=== PATIENT | female | born 1955 | race African-American/Black ===

== ENCOUNTER 2019-10-09 17:58 | Inpatient (IN) | payer OTHER ==
--- OUTSIDE RECORDS SUMMARY | 2019-10-09 18:01 | XMS REPORT | Summary of Care ---
:1955 Author Organization [facility] Address [address] [place] [address] Care Team Providers Name Role Phone Doctor Unassigned, [place] Primary Care Provider Unavailable Reason for Visit Reason Comments Cough 1 week Headache 1 week Fever today- 102.5 Encounter Details Date Type Department Care Team Description 10/07/2019 Urgent Care [facility] Unknown, Attending Mass of lower lobe of left lung (Primary Dx); [facility] Care Julita Colbert, [facility] [address] [facility] [address] [place] [address] Fever, unspecified fever cause; [address] Chest congestion; [place] [address] Allergies Active Allergy Reactions Severity Noted Date Comments Penicillins Hives, Shortness of Breath 10/07/2019 documented as of this encounter (statuses as of 10/07/2019) Medications Medication Sig Dispensed Refills Start Date End Date Status amLODIPine 10 mg tablet Take 10 mg by 0 09/30/2019 Active mouth daily. anastrozole 1 mg tablet Take 1 mg by 0 09/30/2019 Active mouth daily carvediloL 25 mg tablet TAKE 1 TABLET 0 10/01/2019 Active BY MOUTH TWICE DAILY WITH FOOD celecoxib 200 mg capsule TAKE 1 0 08/28/2019 Active CAPSULE BY MOUTH TWICE DAILY NEEDED FARXIGA 5 mg tablet Take 1 tablet 0 09/30/2019 Active by mouth daily. DEXILANT 60 mg capsule Take 1 0 09/30/2019 Active capsule by mouth daily. doxazosin 4 mg tablet Take 4 mg by 0 09/30/2019 Active mouth 2 (two) times daily. gabapentin 300 mg capsule Take 300 mg 0 08/28/2019 Active by mouth 2 (two) times daily. hydroCHLOROthiazide 25 mg 0 10/03/2019 Active tablet telmisartan 80 mg tablet Take 80 mg by 0 09/30/2019 Active mouth daily. SITagliptin-metformin Take by 0 Active (JANUMET XR) 50-1,000 mg mouth. per tablet glipiZIDE XL 10 mg 24 hr Take 10 mg by 0 Active tablet mouth. pravastatin 40 mg tablet Take 40 mg by 0 Active mouth at bedtime. doxycycline hyclate 100 mg Take 1 tablet 14 tablet 0 10/07/20192019 Active tabletIndications: Chest by mouth 2 congestion, Productive (two) times cough, Mass of lower lobe daily for 7 of left lung days. Hospital, Clinic, or Other Ordered Dose Route Frequency Start Date End Date Status Facility Administered Medication acetaminophen (TYLENOL) 650 mg Oral ONCE 10/07/2019 10/07/2019 Ended tablet 650 mg documented as of this encounter (statuses as of 10/07/2019) Active Problems No known active problemsdocumented as of this encounter (statuses as of 2019) Social History Tobacco Use Types Packs/Day Years Used Date Never Smoker Smokeless Tobacco: Never Used Sex Assigned at Date Recorded Not on file Job Start Date Occupation Industry Not on file Not on file Not on file Travel History Travel Start Travel End No recent travel history available. documented as of this encounter Last Filed Vital Signs Vital Sign Reading Time Taken Comments Blood Pressure 134/77 10/07/2019 3:24 PM CDT Pulse 73 10/07/2019 3:24 PM CDT Temperature 39.1 C (102.4 F) 10/07/2019 3:24 PM CDT Respiratory Rate 18 10/07/2019 3:24 PM CDT Oxygen Saturation 97% 10/07/2019 3:24 PM CDT Inhaled Oxygen Concentration - - Weight 104.3 kg (230 lb) 10/07/2019 3:24 PM CDT Height 165.1 cm (5' 5") 10/07/2019 3:24 PM CDT Body Mass Index 38.27 10/07/2019 3:24 PM CDT documented in this encounter Progress Notes Julita Colbert FNP - 10/07/2019 2:00 PM CDT SUBJECTIVE CC: Cough (1 week); Headache (1 week); and Fever (today- 102.5) PCP : [place] Doctor Unassigned HPI: Mariella House is a 64 year old female who comes today with complaints of fever onset today,cough and headache for one week. She reports recently went to [facility] in [place] this past Saturday, the park, and museum over [place]. She states she started a week ago with runny nose, itchy eyes, and cough. She has been taking tessalon perles, cold and flu medicine and Mucinex with norelief. She states this morning she took her temperature and it was 102.5 at home. She has not had any Tylenol or ibuprofen. She does report a decreased appetite. Denies and nausea/vomiting or diarrhea. Denies any travel out of the country and coming into contact with anyone who has or has been positive for COVID19. Patient PCP: Natalya Coffman Denies chest pain, SOB, difficulty breathing, nausea/vomiting, diarrhea, dizziness, palpitations, blurry/double vision. ASSOCIATED SYMPTOMS/REVIEW OF SYMPTOMS: Fever: Tmax 102.5 measured at home. Ears, nose, mouth and throat: - ear pain, - nasal drainage, - sore throat Gastrointestinal: - vomiting, - nausea, - diarrhea, - abdominal pain, - constipation. Cardiovascular: - chest pain, - palpitations, - syncope Respiratory: - SOB, -difficulty breathing Neurological: - dizziness, -weakness, -blurry/double vision. Endocrine: - heat/cold intolerance, - fatigue, - sex drive Psychiatric: - depression, -anxiety, - mood changes Skin: - rash Allergy/Immunology: Negative I/O: Solid intake : decreased Liquid intake: normal Urinary output: normal Sick Contacts: contacts with similar symptoms - no Activity Level: normal Other Symptoms/Concerns: none PAST HISTORY Past Medical History: Diagnosis Date Breast cancer Diabetes HTN (hypertension) Neuropathy Immunizations: UTD No family history on file. Social History Socioeconomic History Marital status: Spouse name: Not on file Number of children: Not on file Years of education: Not on file Highest education level: Not on file Occupational History Not on file Social Needs Financial resource strain: Not on file Food insecurity: Worry: Not on file Inability: Not on file Transportation needs: Medical: Not on file Non-medical: Not on file Tobacco Use Smoking status: Never Smoker Smokeless tobacco: Never Used Substance and Sexual Activity Alcohol use: Not on file Drug use: Not on file Sexual activity: Not on file Lifestyle Physical activity: Days per week: Not on file Minutes per session: Not on file Stress: Not on file Relationships Social connections: Talks on phone: Not on file Gets together: Not on file Attends mandaeism service: Not on file Active member of club or organization: Not on file Attends meetings of clubs or organizations: Not on file Relationship status: Not on file Intimate partner violence: Fear of current or ex partner: Not on file Emotionally abused: Not on file Physically abused: Not on file Forced sexual activity: Not on file Other Topics Concern Not on file Social History Narrative Not on file Health Maintenance Due Topic Date Due HEPATITIS C (HCV) SCREEN 1955 DTaP,Tdap,and Td Vaccines (1 - Tdap) 1964 Breast Cancer Screening (MAMMOGRAM) 1993 COLONOSCOPY 2003 Zoster Recombinant Vaccine (SHINGRIX) (1 of 2) 2003 PNEUMOCOCCAL VACCINES 65+ (1 of 2 - PCV13) 2018 Medicare Wellness Visit 2018 Osteoporosis Screening 2018 INFLUENZA VACCINE (1) 03/22/2019 Current Meds: Current Outpatient Medications on File Prior to Visit Medication Sig Dispense Refill amLODIPine 10 mg tablet Take 10 mg by mouth daily. anastrozole 1 mg tablet Take 1 mg by mouth daily carvediloL 25 mg tablet TAKE 1 TABLET BY MOUTH TWICE DAILY WITH FOOD celecoxib 200 mg capsule TAKE 1 CAPSULE BY MOUTH TWICE DAILY NEEDED DEXILANT 60 mg capsule Take 1 capsule by mouth daily. doxazosin 4 mg tablet Take 4 mg by mouth 2 (two) times daily. FARXIGA 5 mg tablet Take 1 tablet by mouth daily. gabapentin 300 mg capsule Take 300 mg by mouth 2 (two) times daily. glipiZIDE XL 10 mg 24 hr tablet Take 10 mg by mouth. hydroCHLOROthiazide 25 mg tablet pravastatin 40 mg tablet Take 40 mg by mouth at bedtime. SITagliptin-metformin (JANUMET XR) 50-1,000 mg per tablet Take by mouth. telmisartan 80 mg tablet Take 80 mg by mouth daily. No current facility-administered medications on file prior to visit. ALLERGIES: Allergies Allergen Reactions Pcn [Penicillins] Hives and Shortness of Breath PHYSICAL EXAM BP 134/77 | Pulse 73 | Temp 39.1 C (102.4 F) (Oral) | Resp 18 | Ht 5' 5 " (1.651 m) | Wt 230lb (104.3 kg) | SpO2 97% | BMI 38.27 kg/m General: Alert, active, in no acute distress. + wet cough, ill appearing Head: Normocephalic. Eyes: Pupils equal, round, reactive to light, EOMI, bilateral conjunctivae clear , no discharge. Ears: External auditory canals are clear. TM's reg, landmarks noted. Nose: clear nasal discharge. Mouth: No lesions noted. Gums normal. Tongue symmetric. Throat: Moist mucous membranes, normal tonsils without erythema, exudates or petechiae. Neck: No lymphadenopathy. No thyromegaly. Lungs: Coarse breath, good air entry bilaterally. Heart: Regular rate and rhythm, no murmur auscultated. Abdomen: Normal bowel sounds, soft, non-tender, non-distended, no hepatosplenomegaly or masses. No CVA tenderness. Skin: Skin color normal for ethnicity, texture and turgor are normal; no bruising, rashes or lesionsnoted. Capillary refill 2 sec. Interventions in clinic: Mariella was seen today for cough, headache and fever. Diagnoses and all orders for this visit: Mass of lower lobe of left lung - doxycycline hyclate 100 mg tablet; Take 1 tablet by mouth 2 (two) times daily for 7 days. Fever, unspecified fever cause - POCT FLU A AND B (MOLECULAR) - POCT GRP A STREP (MOLECULAR) - CORONAVIRUS COVID-19 TESTING; Future - XR CHEST 2 VW; Future Chest congestion - CORONAVIRUS COVID-19 TESTING; Future - XR CHEST 2 VW; Future - doxycycline hyclate 100 mg tablet; Take 1 tablet by mouth 2 (two) times daily for 7 days. Productive cough - CORONAVIRUS COVID-19 TESTING; Future - XR CHEST 2 VW; Future - doxycycline hyclate 100 mg tablet; Take 1 tablet by mouth 2 (two) times daily for 7 days. Other orders - acetaminophen (TYLENOL) tablet 650 mg POCT strep and flu: negative. COVID screening pending. Chest xray reviewed with patient: 4.2cm left lower lobe lung mass; concerning for malignancy. Recommend chest CT. ASSESSMENT ICD-10-CM ICD-9-CM 1. Mass of lower lobe of left lung R91.8 786.6 2. Fever, unspecified fever cause R50.9 780.60 3. Chest congestion R09.89 786.9 4. Productive cough R05 786.2 PLAN: Current Outpatient Medications Medication Sig amLODIPine 10 mg tablet Take 10 mg by mouth daily. anastrozole 1 mg tablet Take 1 mg by mouth daily carvediloL 25 mg tablet TAKE 1 TABLET BY MOUTH TWICE DAILY WITH FOOD celecoxib 200 mg capsule TAKE 1 CAPSULE BY MOUTH TWICE DAILY NEEDED DEXILANT 60 mg capsule Take 1 capsule by mouth daily. doxazosin 4 mg tablet Take 4 mg by mouth 2 (two) times daily. doxycycline hyclate 100 mg tablet Take 1 tablet by mouth 2 (two) times daily for 7 days. FARXIGA 5 mg tablet Take 1 tablet by mouth daily. gabapentin 300 mg capsule Take 300 mg by mouth 2 (two) times daily. glipiZIDE XL 10 mg 24 hr tablet Take 10 mg by mouth. hydroCHLOROthiazide 25 mg tablet pravastatin 40 mg tablet Take 40 mg by mouth at bedtime. SITagliptin-metformin (JANUMET XR) 50-1,000 mg per tablet Take by mouth. telmisartan 80 mg tablet Take 80 mg by mouth daily. Recommend patient follow up with PCP for chest CT to be done. Patient given ER precautions for SOB, difficulty breathing, coughing up of blood, chest pain. Patient verbalized understanding. Plenty of rest and increase liquids. Antitussives as directed. Recommend Corcidin HBP. Symptomatic therapy as needed. Extra fluids encouraged. Limiting milk and dairy products until symptoms improve Practice good handwashing Discussed signs and symptoms of dehydration and instructed to call office if symptoms worsen Follow up with PCP PRN. Plan of care, desired health behaviors, goals and medications discussed with patient/parent and educational resources and self-management tools provided. Patient/family/guardian voices understanding. Barriers to care: none Ability to manage care: good AVS reviewed and given to patient at conclusion of visit. documented in this encounter Plan of Treatment Name Type Priority Associated Diagnoses Date/Time XR CHEST 2 VW IMAGING JAMES Fever, unspecified fever cause 10/07/2019 4:47 PM CDT Chest congestion Productive cough Name Type Priority Associated Diagnoses Order Schedule CORONAVIRUS COVID-19 LAB Routine Fever, unspecified fever Expected: 2019, TESTING cause Expires: 10/06/2020 Chest congestion Productive cough Health Maintenance Due Date Last Done Comments HEPATITIS C (HCV) SCREEN 1955 DTaP,Tdap,and Td Vaccines (1 - Tdap) 1964 Breast Cancer Screening (MAMMOGRAM) 1993 COLONOSCOPY 2003 Zoster Recombinant Vaccine (SHINGRIX) (1 of 2) 2003 Medicare Wellness Visit 2018 Osteoporosis Screening 2018 PNEUMOCOCCAL VACCINES 65+ (1 of 2 - PCV13) 2018 INFLUENZA VACCINE (#1) 2019 documented as of this encounter Procedures Procedure Name Priority Date/Time Associated Diagnosis Comments POCT FLU A AND B Routine 10/07/2019 Fever, unspecified Results for this (MOLECULAR) fever cause procedure are in the results section. POCT GRP A STREP Routine 10/07/2019 Fever, unspecified Results for this (MOLECULAR) fever cause procedure are in the results section. documented in this encounter Results POCT GRP A STREP (MOLECULAR) (10/07/2019) POCT GP A STREP negative Negative - Negative Specimen Swab - THROAT POCT FLU A AND B (MOLECULAR) (10/07/2019) POCT INFLUENZA A negative Negative - Negative POCT INFLUENZA B negative Negative - Negative Specimen Swab documented in this encounter Visit Diagnoses Diagnosis Mass of lower lobe of left lung - Primary Fever, unspecified fever cause Chest congestion Other symptoms involving respiratory system and chest Productive cough Cough documented in this encounter Administered Medications Medication Order MAR Action Action Date Dose Rate Site acetaminophen (TYLENOL) tablet Given 10/07/2019 4:46 PM CDT 650 mg 650 mg 650 mg, Oral, ONCE, 1 dose, Sat10/07/19 at 1730, Routine documented in this encounter Insurance Payer Benefit Plan / Subscriber ID Effective Dates Phone Address Type Group [employer] [id number] 2019-Presen Medicare Adv [place] HMO documented as of this encounter
--- OUTSIDE RECORDS SUMMARY | 2019-10-09 18:01 | XMS REPORT ---
:1955 Author [facility] Address [address] [place] [address] Dr. Leyva [address] [place] [address] Care Team Providers Name Role Phone Unavailable Unavailable Unavailable Problems This patient has no known problems. Allergies, Adverse Reactions, Alerts This patient has no known allergies or adverse reactions. Medications This patient has no known medications.
--- OUTSIDE RECORDS SUMMARY | 2019-10-09 18:02 | XMS REPORT | Summary of Care ---
:1955 Author Organization [facility] Address [address] [place] [address] Care Team Providers Name Role Phone Doctor Unassigned, [place] Primary Care Provider Unavailable Reason for Visit Reason Comments Cough 1 week Headache 1 week Fever today- 102.5 Encounter Details Date Type Department Care Team Description 10/07/2019 Urgent Care [facility] Unknown, Attending Mass of lower lobe of left lung (Primary Dx); [facility] Urgent Care Julita Colbert, [facility] [address] [facility] [address] [place] [address] Fever, unspecified fever cause; [address] Chest congestion; [place] [address] Allergies Active Allergy Reactions Severity [...] week); and Fever (today- 102.5) PCP : [place] Doctor Unassigned HPI: Mariella House is a 64 year old female who comes today with complaints of fever onset today,cough and headache for one week. She reports recently went to [facility] in [place] this past Saturday, the park, and museum [...] file Gets together: Not on file Attends judaism service: Not on file Active member of [...] of Treatment Name Type Priority Associated Diagnoses Order Schedule [...] results section. documented in this encounter Results XR CHEST 2 VW (10/07/2019 4:47 PM CDT) Specimen Impressions Performed At PACS/VR/DOSE Left lower lobe mass like opacity concerning for malignancy. Chest CT with contrast is recommended for further evaluation. Preliminary Report Dictated by Resident: Clovis Adkins I, Meagan Lewis MD., have reviewed this study and agree with the above report. Narrative Performed At XR CHEST 2 VW PACS/VR/DOSE HISTORY: fever, cough COMPARISON: None FINDINGS: 4.2 cm round opacity is present in the left perihilar region, projecting posteriorly on the lateral radiograph, likely within the left lower lobe. The costophrenic angles are clear. The heart is normal in size. No pneumothorax is found. Procedure Note [facility], Radiant Results Inft User - 10/07/2019 6:39 PM CDT XR CHEST 2 VW HISTORY: fever, cough COMPARISON: None FINDINGS: 4.2 cm round opacity is present in the left perihilar region, projecting posteriorly on the lateral radiograph, likely within the left lower lobe. The costophrenic angles are clear. The heart is normal in size. No pneumothorax is found. IMPRESSION Left lower lobe mass like opacity concerning for malignancy. Chest CT with contrast is recommended for further evaluation. Preliminary Report Dictated by Resident: Meagan Ortega MD., have reviewed this study and agree with the above report. Performing Organization Address City/State/Zipcode Phone Number PACS/VR/DOSE POCT GRP A STREP (MOLECULAR) (10/07/2019) POCT [...] ID Effective Dates Phone Address Type Group [employer] [id number] 2019-Presen Medicare Adv [place] HMO documented as of this encounter
--- OUTSIDE RECORDS SUMMARY | 2019-10-09 18:02 | XMS REPORT | Summary of Care ---
:1955 Author Organization [facility] Address [address] [place] [address] Care Team Providers Name Role Phone Doctor Unassigned, [place] Primary Care Provider Unavailable Encounter Details Date Type Department Care Team Description 10/09/2019 Nurse Triage [facility] Dion Fajardo RN [address] [place] [address] Allergies Active Allergy Reactions Severity Noted Date Comments Penicillins Hives, Shortness of Breath 10/07/2019 documented as of this encounter (statuses as of 10/09/2019) Medications Medication Sig Dispensed Refills Start Date [...] daily for 7 of left lung days. documented as of this encounter (statuses as of 10/09/2019) Active Problems No known active problemsdocumented as [...] of this encounter Last Filed Vital Signs Not on filedocumented in this encounter Plan of Treatment Health Maintenance Due Date Last Done Comments HEPATITIS C (HCV) SCREEN 1955 DTaP,Tdap,and Td Vaccines (1 - Tdap) 1964 Breast Cancer Screening (MAMMOGRAM) 1993 COLONOSCOPY 2003 Zoster Recombinant Vaccine (SHINGRIX) (1 of 2) 2003 Medicare Wellness Visit 2018 Osteoporosis Screening 2018 PNEUMOCOCCAL VACCINES 65+ (1 of 2 - PCV13) 2018 INFLUENZA VACCINE (#1) 2019 documented as of this encounter Results Not on filedocumented in this encounter Insurance Payer Benefit Plan / Subscriber ID Effective Dates Phone Address Type Group [employer] [id number] 2019-Presen Medicare Adv [place] HMO documented as of this encounter
--- OUTSIDE RECORDS SUMMARY | 2019-10-09 18:02 | XMS REPORT | Summary of Care ---
:1955 Author Organization [facility] Address [address] [place] [address] Care Team Providers Name Role Phone Doctor Unassigned, [place] Primary Care Provider Unavailable Encounter Details Date Type Department Care Team Description 10/09/2019 Nurse Triage [facility] Dion Fajardo RN [address] [place] [address] Allergies Active Allergy Reactions Severity Noted Date [...] ID Effective Dates Phone Address Type Group [email or web address] [id number] 2019-Presen Medicare Adv [place] HMO documented as of this encounter
--- OUTSIDE RECORDS SUMMARY | 2019-10-09 18:02 | XMS REPORT | Summary of Care ---
:1955 Author Organization [facility] Address [address] [place] [address] Care Team Providers Name Role Phone Doctor Unassigned, [place] Primary Care Provider Unavailable Encounter Details Date Type Department Care Team Description 10/07/2019 Hospital Encounter [facility] Urgent Care Julita Colbert - [facility] [place], [place] [address] [address] [place] [phone] Allergies Active Allergy Reactions Severity Noted Date Comments Penicillins Hives, Shortness of Breath 10/07/2019 documented as of this encounter (statuses as of 10/08/2019) Medications Medication Sig Dispensed Refills Start Date [...] as of this encounter (statuses as of 10/08/2019) Active Problems No known active problemsdocumented as [...] Procedure Name Priority Date/Time Associated Diagnosis Comments XR CHEST 2 VW JAMES 10/07/2019 4:47 PM Fever, unspecified Results for this CDT fever cause procedure are in Chest congestion the results Productive cough section. documented in this encounter Results XR [...] Performing Organization Address City/State/Zipcode Phone Number PACS/VR/DOSE documented in this encounter Visit Diagnoses Diagnosis Fever, unspecified fever cause Chest congestion Other symptoms involving respiratory system and chest Productive cough Cough documented in this encounter Insurance Payer Benefit Plan / Subscriber ID Effective Dates Phone Address Type Group Eligible [id number] 2019-Presen Medicare Adv [place] t HMO documented as of this encounter
[2019-10-09 20:18] LABS: Absolute Lymphocytes (CBC) 2.4 K/uL (0.7-4.9); Basophils % 0.6 % (0-1.3); Hematocrit 34.4 % (36.0-45.0); Lymphocytes % 23.5 % (15.3-44.8); MPV 11.1 fL (7.6-11.3); Protime INR 1.12; RBC Red Blood Cell Count 4.18 M/uL (3.86-4.86)
[2019-10-09 20:29] LABS: ALT/SGPT 31 U/L (12-78); AST/SGOT 23 U/L (15-37); Albumin 2.9 g/dL (3.4-5.0); Alkaline Phosphatase 72 U/L (45-117); BUN Blood Urea Nitrogen 32 mg/dL (7-18); Bicarbonate 29 mmol/L (21-32); Bilirubin Direct 0.1 mg/dL (0-0.2); Bilirubin Total 0.4 mg/dL (0.2-1.0); Glucose Level 61 mg/dL (74-106); Magnesium 2.7 mg/dL (1.8-2.4); NT PRO-BNP 360 pg/mL (<125); Potassium 3.7 mmol/L (3.5-5.1); Protein, Total 8.4 g/dL (6.4-8.2); Sodium Level 141 mmol/L (136-145); Troponin (Emerg Dept Use Only) < 0.02 ng/mL (0.0-0.045)
--- NOTE | 2019-10-09 20:58 | RAD REPORT ---
EXAM DESCRIPTION: RAD - Chest Single View - 10/09/2019 7:43 pm CLINICAL HISTORY: CHEST PAIN, cough, shortness of breath, history of negative COVID 19 test, patient details history of mass on the lower left lung COMPARISON: Portable chest May 2013 TECHNIQUE: AP portable chest image was obtained 10/09/2019 7:43 pm . FINDINGS: Patient detailed a history of a lower left lung mass not otherwise specified. There are no recent comparison studies available. In the mid left lung field there is hazy increased opacification suspicious for pneumonia in the acut e clinical setting. This is potentially a correlate for the patient provided history of mass. Further information is needed in that regard. Right lung field is clear. No failure or volume overload. Heart and vasculature are normal. No measurable pleural effusion and no pneumothorax. No acute bony abnormality seen. No acute aortic findings suspected. IMPRESSION: Ill-defined left mid lung field mass. In the acute clinical setting this is most likely pneumonia. Patient gives a history of left lung mass. Additional information or comparison imaging will be neede d to correlate that history with the apparent acute pneumonia in the left lung field.
[2019-10-09] MEDS ORDERED: AZITHROMYCIN 500 MG INJ IVPB ONE (21:51)
[2019-10-09] MEDS ORDERED: CEFTRIAXONE/SWI 1gm 1 GM/10 ML SYR ONE (21:52)
[2019-10-09] MEDS ORDERED: NA CHLORIDE 0.9% 250 ML ONE (21:52)
--- NOTE | 2019-10-09 22:53 | EDPHYS ---
Physician Documentation [facility] Name: Mariella House Age: 64 yrs Sex: Female : 1955 Arrival Date: 10/09/2019 Time: 18:01 Bed 8 Private MD: Natalya Coffman ED Physician John Donahue HPI: 10/08 21:48 This 64 yrs old Black Female presents to ER via Wheelchair with complaints of Shortness jr8 Of Breath. 21:48 The patient has shortness of breath at rest. Onset: The symptoms/episode began/occurred jr8 gradually, 1 week(s) ago. Duration: The symptoms are continuous. The patient's shortness of breath has no apparent modifying factors. Associated signs and symptoms: Pertinent positives: non-productive cough. Severity of symptoms: At their worst the symptoms were moderate in the emergency department the symptoms are unchanged. The patient has not experienced similar symptoms in the past. The patient has been recently seen by a physician:. 21:49 [facility] at [facility] for same symptoms two days ago. Swabbed for COVID-19 and had negative jr8 results as of today. Stated that her xray showed infiltrate/mass. Was put on doxycycline and told to f/u for CT of chest. Stated that her symptoms got worse so came here for reevaluation . Historical: - Allergies: 19:03 PENICILLINS; ph 19:03 Iodine; ph - PMHx: 19:02 Cancer, Breast; Hypertension; Hyperlipidemia; Diabetes - NIDDM; ph - PSHx: 19:02 stents x 2; Appendectomy; Hysterectomy; Lumpectomy; ph - Immunization history:: Flu vaccine is not up to date. - Social history:: Smoking status: Patient denies any tobacco usage or history of. ROS: 21:49 Eyes: Negative for injury, pain, redness, and discharge, ENT: Negative for injury, jr8 pain, and discharge, Neck: Negative for injury, pain, and swelling, Cardiovascular: Negative for chest pain, palpitations, and edema, Abdomen/GI: Negative for abdominal pain, nausea, vomiting, diarrhea, and constipation, Back: Negative for injury and pain, MS/Extremity: Negative for injury and deformity, Skin: Negative for injury, rash, and discoloration, Neuro: Negative for headache, weakness, numbness, tingling, and seizure. 21:49 Respiratory: Positive for cough, shortness of breath. Exam: 21:49 Eyes: Pupils equal round and reactive to light, extra-ocular motions intact. Lids and jr8 lashes normal. Conjunctiva and sclera are non-icteric and not injected. Cornea within normal limits. Periorbital areas with no swelling, redness, or edema. ENT: Nares patent. No nasal discharge, no septal abnormalities noted. Tympanic membranes are normal and external auditory canals are clear. Oropharynx with no redness, swelling, or masses, exudates, or evidence of obstruction, uvula midline. Mucous membranes moist. Neck: Trachea midline, no thyromegaly or masses palpated, and no cervical lymphadenopathy. Supple, full range of motion without nuchal rigidity, or vertebral point tenderness. No Meningismus. Cardiovascular: Regular rate and rhythm with a normal S1 and S2. No gallops, murmurs, or rubs. Normal PMI, no JVD. No pulse deficits. Respiratory: Lungs have equal breath sounds bilaterally, clear to auscultation and percussion. No rales, rhonchi or wheezes noted. No increased work of breathing, no retractions or nasal flaring. Abdomen/GI: Soft, non-tender, with normal bowel sounds. No distension or tympany. No guarding or rebound. No evidence of tenderness throughout. Back: No spinal tenderness. No costovertebral tenderness. Full range of motion. Skin: Warm, dry with normal turgor. Normal color with no rashes, no lesions, and no evidence of cellulitis. MS/ Extremity: Pulses equal, no cyanosis. Neurovascular intact. Full, normal range of motion. Neuro: Awake and alert, GCS 15, oriented to person, place, time, and situation. Cranial nerves II-XII grossly intact. Motor strength 5/5 in all extremities. Sensory grossly intact. Cerebellar exam normal. Normal gait. 22:08 ECG was reviewed by the Attending Physician. 8 Vital Signs: 18:58 BP 154 / 68; Pulse 62; Resp 18; Temp 97.8; Pulse Ox 97% on R/A; Weight 104.33 kg; ph Height 5 ft. 5 in. (165.10 cm); 19:04 BP 136 / 59; Pulse 67; Resp 18; Pulse Ox 99% ; ah 20:23 BP 170 / 61; Pulse 64; Resp 19; Pulse Ox 99% ; ah 21:00 BP 162 / 90; Pulse 67; Resp 14; Pulse Ox 98% ; ah 18:58 Body Mass Index 38.27 (104.33 kg, 165.10 cm) ph MDM: 18:55 Patient medically screened. [facility] 22:08 Data reviewed: vital signs, nurses notes, lab test result(s), EKG, radiologic studies, [facility] CT scan, plain films. Data interpreted: Pulse oximetry: on room air is 99 %. Interpretation: normal. Counseling: I had a detailed discussion with the patient and/or guardian regarding: the historical points, exam findings, and any diagnostic results supporting the discharge/admit diagnosis, lab results, radiology results, the need for further work-up and treatment in the hospital. ED course: Spoke with Dr. Thornton about patient. Will see if DD comes back elevated. If so will admit for further work up . 22:36 Transition of care: After a detail discussion of the patient's case, care is [facility] transferred to Iam CHESTER. 22:50 ED course: I discussed the patient with Dr. Thornton whom accepted admission. . [facility] 10/08 19:32 Order name: Basic Metabolic Panel; Complete Time: 20:40 [facility] 10/08 19:32 Order name: CBC with Diff; Complete Time: 20:40 [facility] 10/08 19:32 Order name: LFT's; Complete Time: 20:40 [facility] 10/08 19:32 Order name: Magnesium; Complete Time: 20:40 [facility] 10/08 19:32 Order name: NT PRO-BNP; Complete Time: 20:40 [facility] 10/08 19:32 Order name: PT-INR; Complete Time: 20:40 [facility] 10/08 19:32 Order name: Troponin (emerg Dept Use Only); Complete Time: 20:40 [facility] 10/08 21:41 Order name: Blood Culture Adult (2) [facility] 10/08 22:27 Order name: DD; Complete Time: 22:49 [facility] 10/08 22:42 Order name: Glucose, Ancillary Testing; Complete Time: 22:49 [facility] 10/08 23:14 Order name: CKMB Creatine Kinase MB [facility] 10/08 23:14 Order name: CKMB Creatine Kinase MB [facility] 10/08 23:14 Order name: CKMB Creatine Kinase MB EDMS 10/08 23:14 Order name: CKMB Creatine Kinase MB EDMS 10/08 19:32 Order name: XRAY Chest (1 view); Complete Time: 21:14 8 10/08 21:15 Order name: CT Chest Wo Con jr8 10/08 23:14 Order name: Comprehensive Metabolic Panel EDMS 10/08 23:15 Order name: Comprehensive Metabolic Panel EDMS 10/08 23:15 Order name: Magnesium EDMS 10/08 23:15 Order name: Magnesium EDMS 10/08 23:15 Order name: Blood Culture EDMS 10/08 23:15 Order name: Sputum Gram Stain EDMS 10/08 23:15 Order name: Sputum Culture EDMS 10/08 23:17 Order name: UR CREAT EDMS 10/08 23:17 Order name: UR SODIUM EDMS 10/08 23:17 Order name: Thyroid Stimulating Hormone EDMS 10/08 23:17 Order name: CBC with Automated Diff EDMS 10/08 23:17 Order name: CBC with Automated Diff EDMS 10/08 23:17 Order name: Magnesium EDMS 10/08 23:17 Order name: Magnesium EDMS 10/08 19:32 Order name: EKG; Complete Time: 19:33 8 10/08 19:32 Order name: Cardiac monitoring; Complete Time: 20:15 8 10/08 19:32 Order name: EKG - Nurse/Tech; Complete Time: 20:15 8 10/08 19:32 Order name: IV Saline Lock; Complete Time: 20:00 8 10/08 19:32 Order name: Labs collected and sent; Complete Time: 20:00 [facility] 10/08 19:32 Order name: O2 Per Protocol; Complete Time: 20:15 8 10/08 19:32 Order name: O2 Sat Monitoring; Complete Time: 20:15 8 10/08 23:17 Order name: CONS Pharmacy Consult EDMS 10/08 23:17 Order name: CONS Physician Consult EDMS 10/08 23:17 Order name: Consistent Carb (ADA) 1800 John EDMS EC:08 Rate is 66 beats/min. Rhythm is regular, Sinus Rhythm with Unifocal PVCs. QRS Chunky is jr8 Normal. KS interval is normal at 176 msec. QRS interval is normal at 90 msec. QT interval is normal at 448 msec. No Q waves. T waves are Flattened in leads III, aVF. No ST changes noted. Clinical impression: NSR w/ Non-specific ST/T Changes and No evidence of ischemia. Interpreted by me. Reviewed by me. Administered Medications: 21:35 Drug: Rocephin 1 grams Route: IV; Rate: calculated rate; Site: right antecubital; 21:40 Drug: Zithromax 500 mg Route: IVPB; Infused Over: 1 hrs; Site: right antecubital; 23:40 Drug: LevaQUIN 500 mg Volume: 100 ml; Route: IVPB; Infused Over: 60 mins; Site: right antecubital; Disposition: 10/09/19 22:52 Hospitalization ordered by Heaven Thornton for Observation. Preliminary diagnosis are Pneumonia, Lungs Mass. - Bed requested for Telemetry/MedSurg (observation). - Status is Observation. jb4 - Condition is Stable. - Problem is new. - Symptoms are unchanged. Addendum: 10/22/2019 12:50 Co-signature as Attending Physician, Lonnie Ta MD I agree with the assessment and k dr plan of care. Signatures: Dispatcher [employer] EDMS Lonnie Ta MD MD [facility] Iam Rodriguez PA PA [facility] Hayden Morris PA PA jr8 Yue Maxwell RN RN Mayelin Fountain, MARIA C LOMBARDI Shawn Rivas RN RN jb Kori Raymundo RN RN Corrections: (The following items were deleted from the chart) 10/09 00:14 10/08 22:52 Hospitalization Ordered by Heaven Thornton MD for Observation. Preliminary cg diagnosis is Pneumonia; Lungs Mass. Bed requested for Telemetry/MedSurg (observation). Status is Observation. Condition is Stable. Problem is new. Symptoms are unchanged. lyric 10/09 01:02 00:14 10/09/2019 22:52 Hospitalization Ordered by Heaven Thornton MD for Observation. jb4 Preliminary diagnosis is Pneumonia; Lungs Mass. Bed requested for Telemetry/MedSurg (observation). Status is Observation. Condition is Stable. Problem is new. Symptoms are unchanged. cg
--- NOTE | 2019-10-09 22:53 | ER ---
Nurse's Notes [facility] Name: Mariella House Age: 64 yrs Sex: Female : 1955 Arrival Date: 10/09/2019 Time: 18:01 Bed 8 Private MD: Natalya Coffman Diagnosis: Pneumonia;Lungs Mass Presentation: 10/08 18:58 Chief complaint: Patient states: Seen at [facility] on 10/06 w/ c/o cough and chills, swabbed ph for COVID-19, received negative results today, reports that chills have improved but still has cough evy increasing SOB, states, "They did a CXR there and said I have a mass on my L lower lung.". Coronavirus screen: The patient has NOT traveled to a country currently being monitored by the CDC within the last 14 days. The patient has NOT had contact with any known and/or suspected case of coronavirus. Ebola Screen: No symptoms or risks identified at this time. Initial Sepsis Screen: Does the patient meet any 2 criteria? No. Patient's initial sepsis screen is negative. Does the patient have a suspected source of infection? No. Patient's initial sepsis screen is negative. Risk Assessment: Do you want to hurt yourself or someone else? Patient reports no desire to harm self or others. 18:58 Method Of Arrival: Wheelchair ph 18:58 Acuity: LEONARDO 3 ph 20:20 Onset of symptoms was October 02, 2019. Triage Assessment: 22:46 Respiratory: the patient has moderate shortness of breath. Historical: - Allergies: 19:03 PENICILLINS; ph 19:03 Iodine; ph - PMHx: 19:02 Cancer, Breast; Hypertension; Hyperlipidemia; Diabetes - NIDDM; ph - PSHx: 19:02 stents x 2; Appendectomy; Hysterectomy; Lumpectomy; ph - Immunization history:: Flu vaccine is not up to date. - Social history:: Smoking status: Patient denies any tobacco usage or history of. Screenin:18 Abuse screen: Denies threats or abuse. Nutritional screening: No deficits noted. Tuberculosis screening: No symptoms or risk factors identified. Fall Risk None identified. Assessment: 19:34 General: Appears in no apparent distress. Behavior is calm, cooperative, appropriate for age, Reports fever for on Saturday of 102, none since. Pain: Denies pain. Neuro: Level of Consciousness is awake, alert, Oriented to person, place, time, situation, Cardroom Attendant are equal bilaterally. Cardiovascular: Denies chest pain, Heart tones S1 S2 present Capillary refill < 3 seconds Patient's skin is warm and dry. Pulses are palpable in right radial artery, right dorsalis pedis artery, left radial artery and left dorsalis pedis artery. Respiratory: Airway is patent Respiratory effort is even, unlabored, Respiratory pattern is regular, symmetrical, Sputum is green Onset: The symptoms/episode began/occurred about 1 week ago per Pt. GI: No signs and/or symptoms were reported involving the gastrointestinal system. Abdomen is non-distended, Bowel sounds present X 4 quads. Abd is soft and non tender. : No signs and/or symptoms were reported regarding the genitourinary system. EENT: Reports nasal congestion. Derm: No signs and/or symptoms reported regarding the dermatologic system. Skin is intact, is healthy with good turgor. Derm: Skin is intact, is healthy with good turgor, Skin is. 20:19 Cardiovascular: Rhythm is sinus rhythm PVCs. 20:35 Reassessment: Patient appears in no apparent distress at this time. Patient and/or ah family updated on plan of care and expected duration. Pain level reassessed. Patient is alert, oriented x 3, equal unlabored respirations, skin warm/dry/pink. Patient denies pain at this time. 21:11 Reassessment: upon receiving lab results, Pts glucose is 61. Pt asymptomatic at this time. Loving juice given. 22:38 Reassessment: Patient appears in no apparent distress at this time. Patient and/or ah family updated on plan of care and expected duration. Pain level reassessed. blood sugar rechecked, 75. Pt given sandwich at this time per Hayden CHESTER. No other needs voiced at this time. 22:49 Reassessment: received critical lab value from Pippa, D-Dimer 2540, Notified HENRIK Vitale. Vital Signs: 18:58 BP 154 / 68; Pulse 62; Resp 18; Temp 97.8; Pulse Ox 97% on R/A; Weight 104.33 kg; ph Height 5 ft. 5 in. (165.10 cm); 19:04 BP 136 / 59; Pulse 67; Resp 18; Pulse Ox 99% ; ah 20:23 BP 170 / 61; Pulse 64; Resp 19; Pulse Ox 99% ; ah 21:00 BP 162 / 90; Pulse 67; Resp 14; Pulse Ox 98% ; ah 18:58 Body Mass Index 38.27 (104.33 kg, 165.10 cm) ED Course: 18:01 Patient arrived in ED. ag5 18:01 Natalya Coffman MD is Private Physician. ag5 18:48 Hayden Morris PA is PHCP. jr8 18:48 John Donahue MD is Attending Physician. jr8 18:56 Robe Granados, MARIA C is Primary Nurse. em 19:01 Triage completed. ph 19:03 Arm band placed on Patient placed in an exam room. ph 19:35 X-ray(s) taken. ah 19:49 XRAY Chest (1 view) In Process Unspecified. EDMS 19:50 Inserted saline lock: 22 gauge in right antecubital area, using aseptic technique. ah 20:20 Patient has correct armband on for positive identification. Bed in low position. Call light in reach. Side rails up X2. 21:[address] via stretcher. 21:31 Patient moved back from CT. ah 21:39 CT Chest Wo Con In Process Unspecified. EDMS 22:13 First set of blood cultures drawn by lab staff. Second set of blood cultures drawn by lab staff. 22:17 PHCP role handed off by Hayden Morris PA [facility] 22:17 Iam Rodriguez PA is PHCP. [facility] 22:22 Hayden Morris PA is PHCP. [facility] 22:40 PHCP role handed off by Hayden Morris PA [facility] 22:40 Iam Rodriguez PA is PHCP. [facility] 22:51 Heaven Thornton MD is Hospitalizing Provider. [facility] Administered Medications: 21:35 Drug: Rocephin 1 grams Route: IV; Rate: calculated rate; Site: right antecubital; 21:40 Drug: Zithromax 500 mg Route: IVPB; Infused Over: 1 hrs; Site: right antecubital; 23:40 Drug: LevaQUIN 500 mg Volume: 100 ml; Route: IVPB; Infused Over: 60 mins; Site: right ah antecubital; Outcome: 22:52 Decision to Hospitalize by Provider. pietro 10/09 01:02 Patient left the ED. jb4 Signatures: Dispatcher [employer] Iam Hodge PA PA jmm Munoz, Edgar, RN RN Hayden Ann PA PA jr8 Hall, Patricia, RN RN Shawn Rivas RN RN jbLit Bhatt [facility] Kori Raymundo RN RN Corrections: (The following items were deleted from the chart) 10/08 19:39 19:34 General: Appears in no apparent distress. Behavior is calm, cooperative, ah appropriate for age,
--- NOTE | 2019-10-09 23:04 | P.HP ---
Certification for Inpatient Patient admitted to: Observation With expected LOS: >2 Midnights Patient will require the following post-hospital care: Home Health Services Practitioner: I am a practitioner with admitting privileges, knowledge of patient current condition, hospital course, and medical plan of care. Services: Services provided to patient in accordance with Admission requirements found in Title 42 Section 412.3 of the Code of Federal Regulations Patient History Date of Service: 10/10/19 Reason for admission: Cough, worsening shortness of breath History of Present Illness: 64-year-old female with past medical history of HTN/DM/CAD/ left breast cancer status post lumpectomy, on hormonal therapy, developed cough , nonproductive sputum, worsening shortness of breath since the last 1 week. She was evaluated by [facility] and Covid -19 testing was reportedly negative, She admit to fever 3 days ago and she was started on doxycycline. She developed worsening shortness of breath and presented to the ER today. Her O2 sat was normal. She had a CT done after chest x-ray shows left ill-defined mass. CT showed evidence of a speckled left hilar mass possible for infiltrate versus malignancy. Her D-dimer was noted elevated at greater than 2500. Patient is allergic to iodine and also have elevated creatinine of 1.3. She will be admitted scheduled for V/Q still scan in the morning. She has been started on antibiotics with IV Levaquin now. She denies any recent travel. She denies any cough contact. . Allergies iodine Allergy (Severe, Verified 10/10/19 01:01) Anaphylaxis Penicillins Allergy (Severe, Verified 10/10/19 01:01) Anaphylaxis Home medications list reviewed: Yes Home Medications: Amlodipine [Norvasc*] 10 mg PO BEDTIME 06/05/13 Glipizide [Glucotrol Xl] 10 mg PO BID 06/05/13 Latanoprost Ophth [Xalatan 0.005%*] 1 drop EACH EYE DAILY 06/05/13 Pravastatin Sodium [Pravachol] 40 mg PO BEDTIME 06/05/13 Anastrozole 1 tab PO DAILY 10/10/19 Aspirin 1 tab PO DAILY 10/10/19 Caltrate 600 mg PO DAILY 10/10/19 Carvedilol [Coreg] 1 tab PO BID 10/10/19 Celecoxib 1 cap PO TID PRN 10/10/19 Dapagliflozin Propanediol [Farxiga] 1 tab PO DAILY 10/10/19 Dexlansoprazole [Dexilant] 60 mg PO DAILY 10/10/19 Doxazosin [Cardura*] 1 tab PO BID 10/10/19 Gabapentin 1 cap PO TID PRN 10/10/19 Senior Vitamin 1 tab PO DAILY 10/10/19 Sitagliptin Phos/Metformin HCl [Janumet Xr 50-1,000 mg Tablet] 1 tab PO BID Telmisartan 1 tab PO DAILY 10/10/19 Ubidecarenone [Co Q-10] 1 cap PO DAILY 10/10/19 hydroCHLOROthiazide [Hydrochlorothiazide] 1 tab PO DAILY 10/10/19 - Past Medical/Surgical History Diabetic: Yes -: htn -: hypeerlipidemia -: copd -: reflux -: Postsurgical hysterectomy -: appy -: partial hyst -: righ knee arthroscopy -: Appendectomy Psychosocial/ Personal History: - Family History Mother -: Heart disease, Other (see notes) Notes: asthmatic Father -: Heart disease Brother -: Heart disease, Other (see notes) Notes: heart attack Sister -: Hypertension, Diabetes, Stroke Notes: heart stents. anuerysm. dementia. asthma - Social History Smoking Status: Unknown if ever smoked Smoking therapy provided: No Alcohol use: No CD- Drugs: No Caffeine use: Yes Place of Residence: Home Review of Systems 10-point ROS is otherwise unremarkable General: Weakness, Malaise Respiratory: Cough, Dry, Shortness of Breath, Pleuritic Pain Gastrointestinal: Nausea Musculoskeletal: Unremarkable Integumentary: Unremarkable Neurological: Unremarkable Lymphatics: Unremarkable Physical Examination - Physical Exam General: Alert, In no apparent distress, Oriented x3, Cooperative HEENT: Atraumatic, Normocephalic, PERRLA, Mucous membr. moist/pink Neck: Supple, 2+ carotid pulse no bruit, JVD not distended Respiratory: Normal air movement, Diminished Cardiovascular: No edema, Normal pulses, Regular rate/rhythm, Normal S1 S2 Gastrointestinal: Normal bowel sounds, Soft and benign, Non-distended Musculoskeletal: No clubbing, No swelling, No contractures Integumentary: No rashes, No breakdown Neurological: Normal gait, Normal speech - Studies Laboratory Data (last 24 hrs) 10/09/19 19:50: PT 13.2 H, INR 1.12 10/09/19 19:50: WBC 10.3, Hgb 11.0 L, Hct 34.4 L, Plt Count 207 10/09/19 19:50: Sodium 141, Potassium 3.7, BUN 32 H, Creatinine 1.31 H, Glucose 61 L, Magnesium 2.7 H, Total Bilirubin 0.4, AST 23, ALT 31, Alkaline Phosphatase 72 Imagings Data: CXR -IMPRESSION: Ill-defined left mid lung field mass. In the acute clinical setting this is most likely pneumonia. Patient gives a history of left lung mass. Additional information or comparison imaging will be needed to correlate that history with the apparent acute pneumonia in the left lung field. CT lung - multi-lobar pneumonia in left lung Assessment and Plan - Problems (Diagnosis) (1) Left lower lobe pneumonia Current Visit: Yes Status: Acute (2) Mass of left lung Current Visit: Yes Status: Acute (3) D-dimer, elevated Current Visit: Yes Status: Acute Discharge Plan: Home - Advance Directives Does patient have a Living Will: No Does patient have a Durable POA for Healthcare: Yes Physician Review: Patient Assessed, Agree with Above Assessment and Plan Physician Review Additional Text: # left lung pneumonia/possible mass-will start patient on empirical antibiotics with Levaquin and clindamycin -will consult pulmonary for outpatient follow-up -will obtain sputum for culture and sensitivity. -will obtain blood culture -we admit to observation status -we start gentle IV fluid hydration, his creatinine improved to less than 1.2 in a.m., we consider giving IV steroids and doing the CT PE protocol to rule out PE otherwise will keep patient E Saturday for a V/Q scan # hypertension-restart home meds when obtain # Diabetes mellitus-restarted the sliding scale with Accu-Cheks # elevated D-dimer-as noted above.-start empirical Lovenox 1 mg per kg/q12 # DVT prophylaxis-as noted above Advanced directive patient is a full code Total time review of record discussion with ER staff greater than 70 min Time Spent Managing Pts Care (In Minutes): 03
[2019-10-09] MEDS ORDERED: ONDANSETRON 4 MG/2 ML VIAL IV PRN (23:08)
[2019-10-09] MEDS ORDERED: ACETAMINOPHEN 500 MG TAB PO PRN (23:08)
[2019-10-09] MEDS ORDERED: MORPHINE 2 MG/ML SYR IV PRN (23:08)
[2019-10-09] MEDS ORDERED: HYDRALAZINE HCL 20 MG/ML VIAL IV PRN (23:12)
[2019-10-09] MEDS ORDERED: LORAZEPAM 0.5 MG TABLET PO PRN (23:12)
[2019-10-09] MEDS ORDERED: GUAIFENESIN/DM 5 ML UCUP PO PRN (23:12)
[2019-10-10] MEDS: NA CHLORIDE 0.9% 1,000 ML IV SCH ×3 (01:23→20:05)
[2019-10-10] MEDS: IPRATROPIUM BROM 0.5MG/2.5ML NEB SCH ×4 (01:30→19:20)
[2019-10-10] MEDS ORDERED: Levofloxacin500mg IV 500 MG/100 ML BAG IV SCH ×2 (02:00→23:00)
[2019-10-10] MEDS: ENOXAPARIN 100 MG/ML SYR SQ SCH ×3 (02:13→22:00)
[2019-10-10 05:04] LABS: Absolute Lymphocytes (CBC) 2.6 K/uL (0.7-4.9); Basophils % 0.7 % (0-1.3); Hematocrit 31.6 % (36.0-45.0); Lymphocytes % 28.3 % (15.3-44.8); MPV 11.4 fL (7.6-11.3); RBC Red Blood Cell Count 3.91 M/uL (3.86-4.86)
[2019-10-10 05:15] LABS: ALT/SGPT 24 U/L (12-78); AST/SGOT 19 U/L (15-37); Albumin 2.5 g/dL (3.4-5.0); Alkaline Phosphatase 63 U/L (45-117); BUN Blood Urea Nitrogen 27 mg/dL (7-18); Bicarbonate 26 mmol/L (21-32); Bilirubin Total 0.4 mg/dL (0.2-1.0); CKMB Creatine Kinase MB < 1.0 ng/mL (0.3-3.6); Glucose Level 109 mg/dL (74-106); Potassium 3.4 mmol/L (3.5-5.1); Protein, Total 7.4 g/dL (6.4-8.2); Sodium Level 138 mmol/L (136-145)
[2019-10-10 05:18] LABS: Magnesium 2.4 mg/dL (1.8-2.4); Thyroid Stimulating Hormone 2.54 uIU/mL (0.360-3.740)
[2019-10-10] MEDS: INSULIN -REGULAR HUMAN 50 UNIT/0.5 ML ML SQ SCH ×4 (07:30→20:08)
[2019-10-10] MEDS: ALBUTEROL 2.5 MG/3 ML NEB SOL NEB PRN (07:44)
[2019-10-10] MEDS: GUAIFENESIN 600 MG SA TAB PO SCH ×2 (08:27→20:06)
[2019-10-10] MEDS: PANTOPRAZOLE 40MG TABLET PO SCH ×2 (08:27→17:37)
[2019-10-10] MEDS ORDERED: GABAPENTIN 300 MG CAP PO PRN (14:55)
[2019-10-10] MEDS ORDERED: PNEUMOCOCCAL VACCINE 0.5 ML IMVAC ONE (17:00)
[2019-10-10] MEDS ORDERED: INFLUENZA VACCINE (for 3y+) 0.5 ML DOSE IMVAC ONE (17:00)
--- NOTE | 2019-10-10 17:31 | RAD REPORT ---
EXAM DESCRIPTION: NM - Vent Perfusion VQ Scan - 10/10/2019 5:16 pm CLINICAL HISTORY: Shortness of breath COMPARISON: October 09, 2019 CT TECHNIQUE: 13.5 Mci [id number] was administered by inhalation. First breath, equilibrium, and washout images of the lungs obtained 7.6 millicuries Technetium-99 MAA was administered intravenously. Anterior, posterior, lateral and ob lique views of the lungs were taken. FINDINGS: A moderate area of diminished radiotracer activity within the left lower lobe is matched o n ventilation and perfusion sequences. No mismatched segmental or lobar perfusion defects are seen. IMPRESSION: The patient has a low probability for a pulmonary embolus
[2019-10-10 17:50] VITALS: O2SAT 98
--- NOTE | 2019-10-10 18:47 | PN ---
Date of Progress Note: 10/10/2019 Subjective: Patient seen and examined. Chart reviewed and case discussed with RN. Previous chart f rom [facility] reviewed. Her coronavirus test was negative from the [facility]. Medications: List reviewed. Code Status: Full. Physical Examination: Vital Signs: Temperature 97.4, heart rate 69, blood pressure 145/73, respirations 16, O2 97% on room air. General: Awake, alert, oriented x3. Elderly female, in some mild distress. Obese, BMI 36. CV: S1, S2. Regular rate and rhythm. Peripheral pulses present. Respiratory: Diminished breath sounds. Patient has wheezing. No use of accessory muscles. Gastrointestinal: Abdomen is soft, nontender, nondistended. Positive bowel sounds. Extremities: No clubbing, cyanosis, or edema. Neurologic: Nonfocal. Laboratory Data: Sodium 138, potassium 3.4, chloride 106, CO2 of 26, BUN 27, creatinine 1.01, glucos e 109, calcium 8.7, albumin 2.5, and D-dimer 2540. WBC 9.2, H and H 10.1 and 31.6, platelets 209. B lood cultures and sputum cultures are pending. CT scan of the chest shows masslike consolidation diana suring up to 6.4 cm in the left lower lobe concerning for any pneumonia or neoplasm. Fullness of the left hilum suggestive of lymphadenopathy, prior left mastectomy and axillary dissection. Advanced d iffuse osteopenia. Assessment And Plan: 64-year-old female with: 1.Left lower lobe pneumonia, may be postobstructive. We will continue with empiric antibiotics. Pu lmonology has been consulted. Follow up on culture results. 2.Left lung mass, possibly metastatic breast cancer. Follow up with Pulmonology recommendations. 3.Elevated D-dimer. Patient is short of breath, tachypneic. We will obtain V/Q scan to rule out pu lmonary embolism. Unable to obtain CT angio chest due to the patient's iodine allergy, which causes hives and difficulty breathing. 4.History of breast cancer with mastectomy on the left side. 5.Hypokalemia. We will replace and monitor. 6.Acute kidney injury, corrected. 7.Essential hypertension. Resume home medications as appropriate. 8.Mixed hyperlipidemia. Continue statin. 9.Chronic obstructive pulmonary disease, chronic bronchitis. We will continue with inhalers. We wi ll add steroids due to wheezing. 10.Gastroesophageal reflux disease. Continue home medications. Plan likely in the next 24 to 48 ho urs depending on clinical response. Follow up on V/Q scan. We will discontinue intravenous fluids. Creatinine is normalized. 11.Diabetes mellitus type 2. Continue with sliding scale insulin. Monitor Accu-Cheks. 12.Deep vein thrombosis prophylaxis. Patient is on full-dose Lovenox until pulmonary embolism is ru led out. The patient tested negative for ko on at [facility]. SA/MODL Voice ID: [id number] Report ID: [id number]
[2019-10-10] MEDS: GLIPIZIDE S.A. 5 MG TAB PO SCH (20:05)
[2019-10-10] MEDS: DOXAZOSIN 4 MG TAB PO SCH (20:06)
[2019-10-10] MEDS: carvediloL 25 MG TAB PO SCH (20:07)
--- NOTE | 2019-10-10 20:17 | RAD REPORT ---
EXAM DESCRIPTION: CT - Thorax Reji Lauren - 10/10/2019 3:[address] Chest Without Intravenous Contrast CLINICAL HISTORY: The patient is 64 years old and is Female; lung mass with worsening of symptoms TECHNIQUE: Axial computed tomography images of the chest without intravenous contrast. Sagittal an d coronal reformatted images were created and reviewed. This CT exam was performed using one or mor e of the following dose reduction techniques: automated exposure control, adjustment of the mA and/ or kV according to patient size, and/or use of iterative reconstruction technique. DLP: 638 mGy*cm COMPARISON: Chest radiograph of the same day. FINDINGS: LUNGS: Multilobular consolidation in the superior segment of the left lower lobe with s urrounding groundglass opacity measuring approximately 6.4 x 4.9 cm. Few air bronchograms within it. Fullness of the left hilum. PLEURAL SPACE: Unremarkable. No pneumothorax. No significant effusion. HEART: Visualized heart is normal in size. Coronary calcifications. No significant pericardial effusion. THYROID: Visualized thyroid is normal. BONES/JOINTS: Advanced diffuse osteopenia. Multilevel degenerative disc disease. No acute fracture. No dislocation. SOFT TISSUES: Left mastectomy changes VASCULATURE: Calcification of the aortic arch. No thoracic aortic aneurysm. LYMPH NODES: Unremarkable. No enlarged lymph nodes. IMPRESSION: 1. Masslike consolidation measuring up to 6.4 cm in the left lower lobe concerning for pneumonia or neoplasm. Correlate for signs of infection. Bronchoscopy and tissue sampling may be of diagnostic use. 2. Fullness of the left hilum suggestive of lymphadenopathy. 3. Prior left mastectomy and axillary dissection. 4. Advanced diffuse osteopenia. Electronically signed by: Cisco Arellano DO 10/09/2019 10:04 PM CDT Due to temporary technical issues with the PACS/Fluency reporting system, reports are being signed by the in house radiologist as a courtesy to ensure prompt reporting. The interpreting radiologist is f ully responsible for the content of the report.
[2019-10-10] MEDS ORDERED: HOME MED 1 EA UNK (Pravastatin Sodium [Pravachol] 40 MG) PO SCH (21:00)
[2019-10-10] MEDS ORDERED: ATORVASTATIN 10 MG TAB PO SCH (21:00)
[2019-10-10] MEDS ORDERED: AMLODIPINE 10 MG TAB PO SCH (21:00)
[2019-10-11] MEDS: NA CHLORIDE 0.9% 1,000 ML IV SCH (01:21)
[2019-10-11] MEDS: IPRATROPIUM BROM 0.5MG/2.5ML NEB SCH ×2 (02:20→08:35)
[2019-10-11 06:22] LABS: Absolute Lymphocytes (CBC) 2.4 K/uL (0.7-4.9); Basophils % 1.3 % (0-1.3); Hematocrit 32.1 % (36.0-45.0); MPV 11.3 fL (7.6-11.3); RBC Red Blood Cell Count 3.93 M/uL (3.86-4.86)
[2019-10-11 06:38] LABS: ALT/SGPT 21 U/L (12-78); AST/SGOT 13 U/L (15-37); Albumin 2.5 g/dL (3.4-5.0); Alkaline Phosphatase 61 U/L (45-117); BUN Blood Urea Nitrogen 15 mg/dL (7-18); Bicarbonate 24 mmol/L (21-32); Bilirubin Total 0.4 mg/dL (0.2-1.0); CKMB Creatine Kinase MB < 1.0 ng/mL (0.3-3.6); Glucose Level 144 mg/dL (74-106); Magnesium 2.1 mg/dL (1.8-2.4); Potassium 3.4 mmol/L (3.5-5.1); Protein, Total 7.2 g/dL (6.4-8.2); Sodium Level 141 mmol/L (136-145)
[2019-10-11] MEDS: INSULIN -REGULAR HUMAN 50 UNIT/0.5 ML ML SQ SCH ×2 (07:30→12:12)
[2019-10-11 07:55] VITALS: BMI 36.1
[2019-10-11] MEDS: ALBUTEROL 2.5 MG/3 ML NEB SOL NEB PRN (08:35)
[2019-10-11] MEDS ORDERED: VALSARTAN 160 MG TAB PO SCH (09:00)
[2019-10-11] MEDS ORDERED: ASPIRIN 81 MG CHEWABLE TABLET PO SCH (09:00)
[2019-10-11] MEDS ORDERED: HOME MED 1 EA UNK (Dexlansoprazole [Dexilant] 60 MG) PO SCH (09:00)
[2019-10-11] MEDS ORDERED: hydroCHLOROthiazide 25 MG TAB PO SCH (09:00)
[2019-10-11] MEDS ORDERED: LATANOPROST 0.005% 2.5ML OPTH OPTH SCH (09:00)
[2019-10-11] MEDS ORDERED: ANASTROZOLE 1 MG TAB PO SCH (09:00)
--- NOTE | 2019-10-11 09:00 | EKG ---
Test Date: 2019-10-09 Test Time: 20:08:28 Assistant Art Director: Herminia CASTILLO MEASUREMENT RESULTS: Intervals: Rate: 66 LA: 176 QRSD: 90 QT: 428 QTc: 448 [place]: P: -22 LA: 176 QRS: 26 T: 28 INTERPRETIVE STATEMENTS: Sinus rhythm with occasional premature ventricular complexes Minimal voltage criteria for LVH, may be normal variant Borderline ECG Compared to ECG 06/05/2013 02:42:39 Ventricular premature complex(es) now present Left ventricular hypertrophy now present T-wave abnormality no longer present Prolonged QT interval no longer present Electronically Signed On 10-11-19 08:58:05 CDT by Mina Tavarez
[2019-10-11] MEDS: ENOXAPARIN 100 MG/ML SYR SQ SCH (09:03)
[2019-10-11] MEDS: DOXAZOSIN 4 MG TAB PO SCH (09:03)
[2019-10-11] MEDS: GLIPIZIDE S.A. 5 MG TAB PO SCH (09:03)
[2019-10-11] MEDS: PANTOPRAZOLE 40MG TABLET PO SCH (09:04)
[2019-10-11] MEDS: carvediloL 25 MG TAB PO SCH (09:04)
[2019-10-11] MEDS: GUAIFENESIN 600 MG SA TAB PO SCH (09:04)
[2019-10-11] MEDS ORDERED: ALBUTEROL INHALER 60 PUFF/8 GM IH PRN (10:23)
--- NOTE | 2019-10-11 10:51 | P.CNS ---
Date of Consult: 10/11/19 Reason for Consult: Abnormal chest x-ray Chief Complaint: Cough, worsening shortness of breath History of Present Illness: Patient is a pleasant 64-year-old lady you became worse over the spring break started having sniffles coughing also has some fever he has had recurrent attacks of allergic rhinitis patient was COVID negative was tested at [facility] admitted here chest x-ray was abnormal has no fever no chest pain quit smoking a long time ago denies any weight loss Allergies iodine Allergy (Severe, Verified 10/10/19 01:01) Anaphylaxis Penicillins Allergy (Severe, Verified 10/10/19 01:01) Anaphylaxis Home Medications: Amlodipine [Norvasc*] 10 mg PO BEDTIME 06/05/13 Glipizide [Glucotrol Xl] 10 mg PO BID 06/05/13 Latanoprost Ophth [Xalatan 0.005%*] 1 drop EACH EYE DAILY 06/05/13 Pravastatin Sodium [Pravachol] 40 mg PO BEDTIME 06/05/13 Anastrozole 1 tab PO DAILY 10/10/19 Aspirin 1 tab PO DAILY 10/10/19 Caltrate 600 mg PO DAILY 10/10/19 Carvedilol [Coreg] 1 tab PO BID 10/10/19 Celecoxib 1 cap PO TID PRN 10/10/19 Dapagliflozin Propanediol [Farxiga] 1 tab PO DAILY 10/10/19 Dexlansoprazole [Dexilant] 60 mg PO DAILY 10/10/19 Doxazosin [Cardura*] 1 tab PO BID 10/10/19 Gabapentin 1 cap PO TID PRN 10/10/19 Senior Vitamin 1 tab PO DAILY 10/10/19 Sitagliptin Phos/Metformin HCl [Janumet Xr 50-1,000 mg Tablet] 1 tab PO BID Telmisartan 1 tab PO DAILY 10/10/19 Ubidecarenone [Co Q-10] 1 cap PO DAILY 10/10/19 hydroCHLOROthiazide [Hydrochlorothiazide] 1 tab PO DAILY 10/10/19 levoFLOXacin [Levaquin] 500 mg PO DAILY #5 tab 10/11/19 - Past Medical/Surgical History Diabetic: Yes -: htn -: hypeerlipidemia -: copd -: reflux -: Postsurgical hysterectomy -: CAD X 2 stents -: appy -: partial hyst -: righ knee arthroscopy -: Appendectomy -: left mastectomy with lumpectomy Psychosocial/ Personal History: - Family History Mother Medical History: Heart disease, Other (see notes) Notes: asthmatic Father Medical History: Heart disease Brother Medical History: Heart disease, Other (see notes) Notes: heart attack Sister Medical History: Hypertension, Diabetes, Stroke Notes: heart stents. anuerysm. dementia. asthma - Social History Smoking Status: Former smoker Alcohol use: No CD- Drugs: No Caffeine use: Yes Place of Residence: Home Review of Systems General: Weakness Respiratory: Cough Physical Examination Temp Pulse Resp BP Pulse Ox 97.4 F 72 16 140/62 96 10/11/19 08:00 10/11/19 09:04 10/11/19 08:00 10/11/19 09:04 10/11/19 08:00 General: Alert, In no apparent distress HEENT: Atraumatic Neck: Supple Respiratory: Clear to auscultation bilaterally Cardiovascular: No edema, Regular rate/rhythm - Problems (1) Left lower lobe pneumonia Current Visit: Yes Status: Acute Plan: Patient is 64 years of age COVID negative tested at [facility] admitted with a left lower lobe infiltrate most likely pneumonia white count normal chemistries reviewed vital signs stable is no fever since admission can be discharged home on some levofloxacin for 7 days and to follow up with me in 2 weeks pre clinical chest x-ray I doubt that this is cancer was likely community-acquired pneumonia Qualifiers: Pneumonia type: due to unspecified organism Qualified Code(s): J18.9 - Pneumonia, unspecified organism
[2019-10-11 12:09] VITALS: BP 120/68; TEMP 97.8
[2019-10-11] MEDS ORDERED: IPRATROPIUM 200 PUFF/12.9 GM INH IH SCH (13:00)
--- NOTE | 2019-10-11 13:01 | DS ---
Consultants: Dr. Orellana. Procedures: None. Admitting Diagnoses: 1. Left lower lobe pneumonia. 2. Left lung mass. 3. Elevated D-dimer. 4. Essential hypertension. 5. Mixed hyperlipidemia. 6. Chronic obstructive pulmonary disease. 7. Gastroesophageal reflux disease. Discharge Diagnoses: 1. Left lower lobe pneumonia likely postobstructive versus community-acquired. 2. Left lung mass, possibly metastatic breast cancer. Outpatient bronch and workup by Pulmonology. 3. Elevated D-dimer. Pulmonary embolism ruled out. 4. History of breast cancer with mastectomy on the left side. 5. Hypokalemia, replaced. 6. Acute kidney injury, corrected. 7. Essential hypertension, stable. 8. Hyperlipidemia. Continue statin. 9. Chronic obstructive pulmonary disease, emphysema, stable. 10. Gastroesophageal reflux disease without esophagitis. 11. Diabetes mellitus type 2 with hyperglycemia, stable. Hospital Course: Patient is a 64-year-old female, came in to the hospital for shortness of breath. She was recently treated for outpatient infection and she has a past medical history of hypertension; diabetes; heart disease; left-sided breast cancer, status post mastectomy, on hormonal therapy. She was recently tested at [facility] for COVID-19 and was reportedly negative. Patient had somewhat elevated creatinine level at 1.3, started on IV fluids. Creatinine level corrected. She had some mild hypokalemia, which was replaced. She did have an elevated D-dimer, this is may be due to history of breast cancer. She is allergic to iodine, therefore VQ scan was done, which showed low probability for PE. Chest CT without contrast showed a masslike consolidation, 6.4 cm in the left lower lobe concerning for pneumonia or neoplasm. Patient was seen by Dr. Orellana, who felt that this was likely community-acquired pneumonia, did not feel that this was mass. However, she will need repeat imaging and possible bronchoscopy to further evaluate. She does have history of breast cancer and may be at risk for metastases. She has not followed up with Oncology since her oncologist retired several years ago. Patient was doing well. She had no signs of sepsis. She is afebrile, not hypoxic, doing well on room air. Able to ambulate without difficulty. Therefore, she was cleared for discharge, sent home in a stable condition. Activity: As tolerated. Medications: As per medication reconciliation list. Followup: Follow up with primary care physician in 2 to 3 days. Follow up with industrial maintenance repairer, Dr. Orellana in 1 week. Establish care with Oncology Center. Return to ER for worsening condition. Repeat chest x-ray in 1 week. Physical Examination: General: Awake, alert, and oriented x3. No acute distress. Elderly female, obese. CV: S1, S2. Respiratory: Moving air well bilaterally. Abdomen: Soft, nontender, nondistended. Positive bowel sounds. Extremities: No clubbing, cyanosis, or edema. Neurologic: Nonfocal. Total time spent discharging patient was 32 minutes. /HOWARD Voice ID: [id number] Report ID: [id number] MICHAEL
== END 2019-10-11 13:42 | disposition home or self-care (01) | DRG 194 ==
LOC: ER 17:58 → ERHOLD 23:31 → 4TH 10-10 00:33 → OBSVTOIN 10-10 12:22
PROVIDERS: ADMIT Internal Medicine; ATTEND Family Medicine
DX: J18.9 Pneumonia, unspecified organism (principal); N17.9 Acute kidney failure, unspecified; C79.81 Secondary malignant neoplasm of breast; I10 Essential (primary) hypertension; I25.10 Atherosclerotic heart disease of native coronary artery without angina pectoris; Z90.12 Acquired absence of left breast and nipple; Z85.3 Personal history of malignant neoplasm of breast; Z88.0 Allergy status to penicillin; Z91.09 Other allergy status, other than to drugs and biological substances; Z79.82 Long term (current) use of aspirin; Z79.899 Other long term (current) drug therapy; Z79.84 Long term (current) use of oral hypoglycemic drugs; K21.9 Gastro-esophageal reflux disease without esophagitis; Z90.49 Acquired absence of other specified parts of digestive tract; Z90.710 Acquired absence of both cervix and uterus; R79.1 Abnormal coagulation profile; E66.9 Obesity, unspecified; Z68.36 Body mass index [BMI] 36.0-36.9, adult; E87.6 Hypokalemia; E78.2 Mixed hyperlipidemia; Z79.890 Hormone replacement therapy; Z95.5 Presence of coronary angioplasty implant and graft; Z87.891 Personal history of nicotine dependence; J43.9 Emphysema, unspecified; E11.65 Type 2 diabetes mellitus with hyperglycemia
CPT/HCPCS: 36415; 71045; 71250; 78582; 80048; 80053; 80076; 82553; 82570; 82947; 83735; 83880; 84300; 84443; 84484; 85025; 85379; 85610; 87040; 87070; 87205; 90471; 90670; 93005; 94640; 96374; 96375; 99284; A9540; A9558; G0378; J0360; J0456; J0696; J1650; J7030; Q2035

== ENCOUNTER 2024-11-24 06:30 | Day surgery (SDC) | payer OTHER ==
[2024-11-20 11:17] LABS: Anion Gap 10.7 mEq/L (5.0-15.0); Potassium 3.7 mEq/L (3.5-5.1)
--- NOTE | 2024-11-20 16:24 | EKG ---
Test Date: 2024-11-20 Test Time: 10:49:42 Manager Business Process: PARVEEN MEASUREMENT RESULTS: Intervals: Rate: 55 WI: 212 QRSD: 92 QT: 414 QTc: 396 [place]: P: 49 WI: 212 QRS: 60 T: 48 INTERPRETIVE STATEMENTS: Sinus bradycardia with 1st degree AV block with occasional premature ventricular complexes Otherwise normal ECG Compared to ECG 11/02/2024 09:11:27 T-wave abnormality no longer present Electronically Signed On 11-20-24 16:24:38 CDT by Osvaldo Gregory
[2024-11-24] MEDS ORDERED: NA CHLORIDE 0.9% 500 ML ONE (06:42)
[2024-11-24 07:00] VITALS: TEMP 97.8
[2024-11-24] MEDS ORDERED: HEPARIN 10,000 UNIT/10 ML VIAL IV ONE (07:08)
[2024-11-24] MEDS ORDERED: MIDAZOLAM HCL 2 MG/2 ML INJ ONE (07:08)
[2024-11-24] MEDS ORDERED: LIDOCAINE 1% 20 ML MDV ONE (07:08)
[2024-11-24] MEDS ORDERED: VERAPAMIL HCL 10 MG/4 ML VIAL IV ONE (07:08)
[2024-11-24] MEDS ORDERED: HEPA 1000U/500MLS 2,000 UNIT/1,000 ML BAG IV ONE (07:08)
[2024-11-24] MEDS ORDERED: ATROPINE SULF 1 MG/10 ML SYR IV ONE (07:09)
[2024-11-24] MEDS ORDERED: HEPARIN 5000 UNIT/ML 1 ML VIAL ONE (07:09)
[2024-11-24] MEDS ORDERED: FENTANYL CITR 100 MCG/2 ML ONE (07:09)
[2024-11-24 07:19] LABS: Absolute Lymphocytes (CBC) 0.7 K/uL (0.7-4.9); Absolute Monocytes 0.1 K/uL (0.1-1.3); Absolute Neutrophil 4.1 K/uL (1.8-8.0); Basophils % 0.7 % (0-1.3); Hematocrit 34.2 % (36.0-45.0); Hemoglobin 11.5 g/dL (12.0-15.0); Lymphocytes % 14.3 % (15.3-44.8); MCH 28.4 pg (27.0-35.0); MCHC 33.5 g/dL (32.0-36.0); MPV 11.2 fL (7.6-11.3); Nucleated Red Blood Cells % 0.1 % (0-0); Platelets 159 thou/uL (152-406); RBC Red Blood Cell Count 4.03 M/uL (3.86-4.86); Red Cell Distribution Width 14.6 % (12.1-15.2)
[2024-11-24] MEDS ORDERED: NITROGLYCERIN/D5W 50 MG/250 ML BTL IV ONE (07:20)
[2024-11-24 07:26] LABS: PT Prothrombin Time 11.5 SECONDS (10-13.0); PTT, Activated Partial Thromb 26.8 SECONDS (27.2-37.4); Protime INR 1.01
[2024-11-24] MEDS ORDERED: DIPHENHYDRAMINE 50 MG/ML VIAL ONE (07:37)
[2024-11-24] MEDS ORDERED: METHYLPREDNISOLONE 125 MG INJ ONE (07:37)
[2024-11-24 10:01] VITALS: O2SAT 97
[2024-11-24 12:20] VITALS: BP 101/58
== END 2024-11-24 10:55 | disposition home or self-care (01) ==
LOC: CCL 06:30
PROVIDERS: ATTEND Internal Medicine
DX: I70.223 Atherosclerosis of native arteries of extremities with rest pain, bilateral legs (principal); I70.92 Chronic total occlusion of artery of the extremities; I25.10 Atherosclerotic heart disease of native coronary artery without angina pectoris; I65.23 Occlusion and stenosis of bilateral carotid arteries; I10 Essential (primary) hypertension; E78.2 Mixed hyperlipidemia; E11.9 Type 2 diabetes mellitus without complications; K21.9 Gastro-esophageal reflux disease without esophagitis; J44.9 Chronic obstructive pulmonary disease, unspecified; Z87.891 Personal history of nicotine dependence; Z88.0 Allergy status to penicillin; Z88.8 Allergy status to other drugs, medicaments and biological substances; Z91.018 Allergy to other foods; Z91.040 Latex allergy status; Z82.49 Family history of ischemic heart disease and other diseases of the circulatory system
CPT/HCPCS: 93005; 85025; 80048; 36415 ×2; 85610; 82947; 85730; 36200; 75630; 76937; C1893; J1644; J2003; J1200; J3010; J2919; J7040; 99152; J0461; J2250